=== PATIENT | female | born 1940 | race Caucasian/White ===

== ENCOUNTER 2022-01-30 13:02 | Emergency (ER) | payer MEDICARE, OTHER ==
[2022-01-30 13:32] VITALS: PULSE 93
[2022-01-30] MEDS ORDERED: ONDANSETRON 4 MG/2 ML VIAL IVP STA ×2 (13:52→15:48)
[2022-01-30] MEDS ORDERED: SODIUM CHLORIDE 0.9% 1,000 ML IV ONE (13:52)
--- NOTE | 2022-01-30 14:04 | ED ---
General Adult HPI - General Chief complaint: Nausea/Vomiting/Diarrhea Stated complaint: Covid+ Time Seen by Provider: 01/30/22 13:36 Source: patient, RN notes reviewed Mode of arrival: ambulatory Limitations: no limitations - History of Present Illness Initial comments: This is an 81-year-old female presents emergency Department with chief complaint of nausea vomiting COVID-19. Patient states she's had some congestion or sore throat mild congestion is at 7-8 episodes of vomiting since morning. Patient states not been able tolerate any oral intake. Patient had no reported fever minimal cough, no shortness breath no abdominal pain no prior cardiac disease patient does not take any current medications has normal drug ALLERGIES. Patient did test positive for COVID-19 home. - Related Data Previous Rx's Medication Instructions Recorded Ondansetron Odt [Zofran Odt] 4 mg PO Q8HR PRN #14 tab 01/30/22 Allergies Allergy/AdvReac Type Severity Reaction Status Date / Time No Known Allergies Allergy Verified 01/30/22 13:43 Review of Systems ROS Statement: Those systems with pertinent positive or pertinent negative responses have been documented in the HPI. ROS Other: All systems not noted in ROS Statement are negative. Past Medical History Past Medical History: No Reported History History of Any Multi-Drug Resistant Organisms: None Reported Past Surgical History: No Surgical Hx Reported Past Psychological History: No Psychological Hx Reported Smoking Status: Never smoker Past Alcohol Use History: None Reported Past Drug Use History: None Reported General Exam Limitations: no limitations General appearance: alert, in no apparent distress Head exam: Present: atraumatic, normocephalic, normal inspection Eye exam: Present: normal appearance, PERRL, EOMI. Absent: scleral icterus, conjunctival injection, periorbital swelling ENT exam: Present: normal exam, normal oropharynx, mucous membranes moist Neck exam: Present: normal inspection, full ROM. Absent: tenderness, meningismus, lymphadenopathy Respiratory exam: Present: normal lung sounds bilaterally. Absent: respiratory distress, wheezes, rales, rhonchi, stridor Cardiovascular Exam: Present: regular rate, normal rhythm, normal heart sounds. Absent: systolic murmur, diastolic murmur, rubs, gallop, clicks GI/Abdominal exam: Present: soft, normal bowel sounds. Absent: distended, tenderness, guarding, rebound, rigid Neurological exam: Present: alert Course Vital Signs 01/30/22 13:28 Temperature 98.3 F Pulse Rate 93 Respiratory 20 Rate Blood Pressure 134/73 O2 Sat by Pulse 96 Oximetry Medical Decision Making - Medical Decision Making 81-year-old female presented for nausea vomiting patient is COVID-19 positive. Patient was hydrated, given antiemetics as felt improved. Family updated on results and feels comfortable discharged with antiemetics. Patient left. Return parameters were discussed. - Lab Data Result diagrams: 01/30/22 13:57 01/30/22 13:57 Lab Results 01/30/22 01/30/22 01/30/22 Range/Units 13:31 13:57 13:57 WBC 7.4 (3.8-10.6) k/uL RBC 4.67 (3.80-5.40) m/uL Hgb 13.5 (11.4-16.0) gm/dL Hct 39.9 (34.0-46.0) % MCV 85.5 (80.0-100.0) fL MCH 29.0 (25.0-35.0) pg MCHC 33.9 (31.0-37.0) g/dL RDW 13.5 (11.5-15.5) % Plt Count 195 (150-450) k/uL MPV 8.4 Neutrophils % 92 % Lymphocytes % 4 % Monocytes % 2 % Eosinophils % 0 % Basophils % 1 % Neutrophils # 6.8 (1.3-7.7) k/uL Lymphocytes # 0.3 L (1.0-4.8) k/uL Monocytes # 0.2 (0-1.0) k/uL Eosinophils # 0.0 (0-0.7) k/uL Basophils # 0.0 (0-0.2) k/uL Sodium 134 L (137-145) mmol/L Potassium 4.0 (3.5-5.1) mmol/L Chloride 100 (98-107) mmol/L Carbon Dioxide 23 (22-30) mmol/L Anion Gap 11 mmol/L BUN 10 (7-17) mg/dL Creatinine 0.61 (0.52-1.04) mg/dL Est GFR (CKD-EPI)AfAm >90 (>60 ml/min/1.73 sqM) Est GFR (CKD-EPI)NonAf 85 (>60 ml/min/1.73 sqM) Glucose 158 H (74-99) mg/dL Calcium 9.2 (8.4-10.2) mg/dL Total Bilirubin 0.7 (0.2-1.3) mg/dL AST 33 (14-36) U/L ALT 16 (4-34) U/L Alkaline Phosphatase 112 (38-126) U/L Total Protein 7.6 (6.3-8.2) g/dL Albumin 4.2 (3.5-5.0) g/dL Coronavirus (PCR) Detected A (Not Detectd) Disposition Clinical Impression: Nausea & vomiting, COVID-19 Disposition: HOME SELF-CARE Condition: Stable Instructions (If sedation given, give patient instructions): COVID-19 (Coronavi antonia Disease 2019) (ED) Additional Instructions: Please return to the Emergency Department if symptoms worsen or any other concerns. Prescriptions: Ondansetron Odt [Zofran Odt] 4 mg PO Q8HR PRN #14 tab PRN Reason: Nausea Is patient prescribed a controlled substance at d/c from ED?: No Referrals: None,Stated [Primary Care Provider] - 1-2 days Time of Disposition: 15:50
[2022-01-30 14:16] LABS: Basophils % (A) 1 %; Eosinophils % (A) 0 %; HCT 39.9 % (34.0-46.0); HGB 13.5 gm/dL (11.4-16.0); Lymphocytes # (A) 0.3 k/uL (1.0-4.8); Lymphocytes % (A) 4 %; MCHC 33.9 g/dL (31.0-37.0); MCV 85.5 fL (80.0-100.0); Mean Platelet Volume 8.4; Monocytes # (A) 0.2 k/uL (0-1.0); Monocytes % (A) 2 %; Neutrophils # (A) 6.8 k/uL (1.3-7.7); Neutrophils % (A) 92 %; Platelet Count 195 k/uL (150-450); RBC 4.67 m/uL (3.80-5.40); RDW 13.5 % (11.5-15.5); WBC 7.4 k/uL (3.8-10.6)
[2022-01-30 14:25] LABS: ALT 16 U/L (4-34); AST 33 U/L (14-36); African American GFR (CKD) >90 (>60 ml/min/1.73 sqM); Albumin 4.2 g/dL (3.5-5.0); Alkaline Phosphatase 112 U/L (38-126); Anion Gap 11 mmol/L; Blood Urea Nitrogen 10 mg/dL (7-17); Calcium 9.2 mg/dL (8.4-10.2); Carbon Dioxide 23 mmol/L (22-30); Chloride 100 mmol/L (98-107); Glucose 158 mg/dL (74-99); Non-African American GFR(CKD) 85 (>60 ml/min/1.73 sqM); Sodium 134 mmol/L (137-145); Total Bilirubin 0.7 mg/dL (0.2-1.3); Total Protein 7.6 g/dL (6.3-8.2)
[2022-01-30] MEDS ORDERED: SODIUM CHLORIDE 0.9% 500 ML 500 ML IV ONE (15:37)
[2022-01-30 16:32] VITALS: BP 115/55; RESP 18; TEMP 99
== END 2022-01-30 16:30 | disposition home or self-care (01) ==
LOC: EC 13:02
DX: U07.1 COVID-19 (principal); R11.2 Nausea with vomiting, unspecified
CPT/HCPCS: 80053; 85025; 87635; 99284; 96374; 96376; 96361; J2405; 36415